=== PATIENT | female | born 1940 | race Caucasian/White ===

== ENCOUNTER 2016-09-25 05:20 | Day surgery (SDC) | payer OTHER ==
[2016-09-25] MEDS ORDERED: LR 1,000 ML ONE (06:08)
[2016-09-25] MEDS ORDERED: KEFZOL 1 GM/D5W 50 ML ONE (06:08)
[2016-09-25] MEDS ORDERED: NEOSPORIN G.U. IRRIGANT ONE (06:10)
[2016-09-25] MEDS ORDERED: PEPCID ONE (06:15)
[2016-09-25] MEDS ORDERED: REGLAN ONE (06:15)
--- NOTE | 2016-09-25 07:43 | OPERATIVE NOTE ---
PROCEDURE DATE: 09/25/2016 SURGEON: Kal Adams MD PREOPERATIVE DIAGNOSIS: Bilateral upper back pain with question of hydroureteronephrosis on ultrasound. POSTOPERATIVE DIAGNOSIS: Bilateral upper back pain with question of hydroureteronephrosis on ultrasound. PROCEDURE PERFORMED: Cystoscopic exam, bilateral retrograde ureteral pyelograms. ANESTHESIA: General via laryngeal mask. FINDINGS: Cystoscopic exam: Urethra-greater than 21 [place]uvian, without stricture. Bladder-normal ureteral orifices bilaterally. No papillary lesions, trabeculations, diverticula or cellules noted. Left retrograde ureteral pyelogram: Normal without filling defect. Right retrograde ureteral pyelogram: Normal without filling defect. The drain film revealed complete emptying of both systems indicating no obstruction. INDICATION FOR PROCEDURE: This 75-year-old female states she has a history of bilateral upper back pains. A renal ultrasound was obtained that revealed a question of bilateral hydronephrosis and possible dilation of the ureters. DESCRIPTION OF PROCEDURE: After informed consent was obtained from the patient and her receiving IV antibiotics, she was taken the main OR cystoscopy room placed in supine position. General anesthesia via laryngeal mask was achieved. She was then placed in a low lithotomy position and prepped and draped in the usual sterile fashion for cystoscopic exam. A 21-Peruvian cystoscope was passed through the patient's urethra and in the bladder with findings noted above. An 8-Peruvian cone-tipped catheter was passed through the cystoscope, engaged right ureteral orifice. Contrast was injected. Left side was accomplished similarly. Again, both sides appeared normal. The bladder was drained. Cystoscope was removed. exam was performed that revealed normal external female. Normal mucosa. No adnexal masses. Palpably normal cervix and uterus. She tolerated the procedure well. ESTIMATED BLOOD LOSS: Zero. CONDITION: She was taken to recovery room in good condition.
--- NOTE | 2016-09-25 07:51 | EKG Report ---
Test Performed on : 09/25/2016 06:24:40 AM Test Reason : per MD order Blood Pressure : / mmHG Vent. Rate : 061 BPM Atrial Rate : 061 BPM P-R Int : 166 ms QRS Dur : 110 ms QT Int : 500 ms P-R-T Axes : 034 -43 083 degrees QTc Int : 503 ms Normal sinus rhythm. Left axis deviation Possible Anterior infarct (cited on or before 15-JUN-2011) Abnormal ECG When compared with ECG of 15-JUN-2011 23:24, Questionable change in initial forces of Lateral leads Nonspecific T wave abnormality, worse in Lateral leads Confirmed by Bethany CHAUDHARI, Timbo Hartley ([id number]) on 09/27/2016 1:13:41 PM
[2016-09-25 08:25] VITALS: BP 115/56
[2016-09-25] MEDS ORDERED: XYLOCAINE-MPF 2% ONE (10:16)
[2016-09-25] MEDS ORDERED: DECADRON ONE (10:16)
[2016-09-25] MEDS ORDERED: ZOFRAN ONE (10:16)
--- NOTE | 2016-09-25 13:19 | Diag Imaging Result Document ---
PROCEDURE NAME: RETROGRADES 2 OR 3 FILMS - 09/25/2016 BILATERAL RETROGRADE PYELOURETEROGRAM: COMPARISON: None available. FINDINGS: Thirteen spot fluoroscopic images were provided, which was performed during retrograde pyeloureterogram by Dr. Kal Adams. The ureters are grossly normal in course and caliber. No discrete ureteral stricture or filling defect is identified. There is no evidence of hydronephrosis. Both renal collecting systems are grossly unremarkable. IMPRESSION: As above. Please correlate with live fluoroscopic imaging.
== END 2016-09-25 08:25 | disposition home or self-care (01) ==
LOC: OPS 05:20
PROVIDERS: ATTEND Urology
DX: M54.89 Other dorsalgia (principal)
CPT/HCPCS: 74420; 93005; 93010; J0690; J1100; J2405; J7120; Q9966